=== PATIENT | female | born 1945 | race African-American/Black ===

== ENCOUNTER → 2018-11-19 | Outpatient (CLI) | payer MEDICARE, OTHER ==
--- NOTE | 2018-11-19 16:24 | PCVCIMAG ---
EXAM: VENOUS DUPLEX BOTH LOWER EXTREMITIES INDICATION: Leg pain and swelling. Prior history of DVT. FINDINGS: Right leg: No thrombus in the common femoral, main femoral, or popliteal veins. These veins are compressible with phasic flow. Calf veins are unremarkable where seen. Left leg: No thrombus in the common femoral, main femoral, or popliteal veins. These veins are compressible with phasic flow. Calf veins are unremarkable where seen. IMPRESSION: No evidence of deep venous thrombosis in either lower extremity as detailed above. EXAM: BILATERAL SUPERFICIAL VENOUS DUPLEX INDICATION: Leg pain and swelling. Prior history of ablation procedures. FINDINGS: Right Great Saphenous Vein: Prior ablation of the main great saphenous vein. A duplicated anterior great saphenous vein is noted and is small without evidence of insufficiency. Right Small Saphenous Vein: At the saphenopopliteal junction the diameter is 3.7 mm, and in the calf it is 3.0 mm. There is not significant venous insufficiency/reflux throughout. Venous insufficiency/reflux duration is 0 seconds. There is not a cranial extension present. Left Great Saphenous Vein: Prior ablation of the main great saphenous vein. A duplicated anterior great saphenous vein is noted and is small without evidence of significant venous insufficiency. Left Small Saphenous Vein: At the saphenopopliteal junction the diameter is 3.1 mm, and in the calf it is 3.8 mm. There is not significant venous insufficiency/reflux throughout. Venous insufficiency/reflux duration is 0 seconds. There is not a cranial extension present. IMPRESSION: Right Great Saphenous Vein: Satisfactory post ablation appearance in the great saphenous vein as reviewed above. Right Small Saphenous Vein: No significant venous insufficiency/reflux is present as noted above. Left Great Saphenous Vein: Satisfactory post ablation appearance in the great saphenous vein as reviewed above. Left Small Saphenous Vein: No significant venous insufficiency/reflux is present as noted above. LOC:OFFICE
== END | disposition home or self-care (01) ==
LOC: PCVCIMAG 14:10
PROVIDERS: ATTEND Family Medicine
DX: M79.604 Pain in right leg (principal); M79.605 Pain in left leg; M79.89 Other specified soft tissue disorders; Z86.718 Personal history of other venous thrombosis and embolism
CPT/HCPCS: 93970